=== PATIENT | female | born 1985 | race Caucasian/White ===

== ENCOUNTER 2018-01-01 20:59 | Inpatient (IN) | payer OTHER ==
[~2018-01-01] VITALS: Ht 139.7 cm; Wt 79.4 kg
[~2018-01-01 20:59] MED LIST: LEVAQUIN500 MG PO; Proventil 0.083% 2.5MG/3ML AMPUL.NEB. IH; ULTRACET PO
[2018-01-01] MEDS ORDERED: CIPRO500 MG (21:54)
[2018-01-01] MEDS ORDERED: SYNTHROID137 MCG (21:55)
== END 2018-01-09 11:19 | disposition home or self-care (01) | DRG 603 ==
LOC: ER 20:59 → SEC-K 23:11 → MEDI 01-02 18:21
PROC: 3E0F7GC Introduction of Other Therapeutic Substance into Respiratory Tract, Via Natural or Artificial Opening (ICD-10-PCS; principal; 2018-01-02)
DX: L02.415 Cutaneous abscess of right lower limb (principal); N39.0 Urinary tract infection, site not specified; L03.115 Cellulitis of right lower limb; E86.0 Dehydration; Q90.9 Down syndrome, unspecified; E03.8 Other specified hypothyroidism; G47.33 Obstructive sleep apnea (adult) (pediatric); B96.20 Unspecified Escherichia coli [E. coli] as the cause of diseases classified elsewhere; B95.62 Methicillin resistant Staphylococcus aureus infection as the cause of diseases classified elsewhere; E66.01 Morbid (severe) obesity due to excess calories